=== PATIENT | male | born 1980 | race Caucasian/White ===

== ENCOUNTER 2024-08-30 22:29 | Emergency (ER) | payer OTHER ==
[~2024-08-30] VITALS: Ht 188 cm; Wt 106.8 kg
[2024-08-30 23:43] LABS: BLOOD UREA NITROGEN 18 MG/DL (9-23); CARBON DIOXIDE LEVEL 30 MMOL/L (20-31); CHLORIDE LEVEL 104 MMOL/L (98-107); CREATININE FOR GFR 0.92 MG/DL (0.70-1.30); GLOMERULAR FILTRATION RATE > 60.0 (>60); GLUCOSE, FASTING 106 MG/DL (60-100); POTASSIUM SERUM 4.2 MMOL/L (3.5-5.1); SODIUM LEVEL 141 MMOL/L (136-145)
[2024-08-30 23:46] LABS: CK-MB VALUE MASS < 1.0 NG/ML (<3.6)
[2024-08-31 00:24] LABS: BASO # 0.1 10^3/uL (0.0-0.2); EOS # 0.3 10^3/uL (0.0-0.5); HEMOGLOBIN 15.3 g/dl (13.5-17.5); LYMPH # 2.5 10^3/uL (1.5-5.0); MEAN CORPUSCULAR HEMOGLOBIN 30.6 pg (27.0-33.0); MEAN CORPUSCULAR HGB CONC 34.8 g/dl (32.0-36.5); MONO # 0.6 10^3/uL (0.0-0.8); MONO % 7.7 % (2.0-8.0); NEUTROPHILS # 4.2 10^3/uL (1.5-8.5); PLATELET COUNT, AUTOMATED 218 10^3/uL (150-450); WHITE BLOOD COUNT 7.7 10^3/uL (4.0-10.0)
[2024-08-31 00:28] LABS: CPK CREATINE PHOSPHOKINASE 468 U/L (46-171); MB/CK RELATIVE INDEX 0.21 (< OR =4)
[2024-08-31 00:51] LABS: CK-MB VALUE MASS < 1.0 NG/ML (<3.6)
[2024-08-31 00:52] LABS: CPK CREATINE PHOSPHOKINASE 457 U/L (46-171); MB/CK RELATIVE INDEX 0.21 (< OR =4)
[2024-08-31 01:12] VITALS: BP 127/78; TEMP 98.3; O2SAT 98
== END 2024-08-31 03:38 | disposition left against medical advice (07) ==
LOC: M ED 22:29
DX: Z53.21 Procedure and treatment not carried out due to patient leaving prior to being seen by health care provider (principal)